=== PATIENT | male | born 1995 | race African-American/Black ===

== ENCOUNTER 2016-09-24 16:37 | Emergency (ER) | payer MEDICAID ==
[~2016-09-24] VITALS: Ht 182.9 cm; Wt 83.3 kg
[2016-09-24 16:39] VITALS: BP 138/68; PULSE 76; RESP 18; TEMP 98.7; O2SAT 98
--- NOTE | 2016-09-24 16:57 | PD ---
HPI Chief Complaint: Abdominal Pain Time Seen by Provider: 16:50 Travel History International Travel<30 days: No Contact w/Intl Traveler<30days: No Traveled to known affect area: No History of Present Illness HPI 20-year-old male here with complaint of abdominal pain. Patient has had 2 weeks of primarily a.m. upper abdominal pain. This is epigastric and radiates her of the abdomen. He describes it as achy. Mild. Associated nausea, vomiting and occasional loose stool. No hematemesis or hematochezia. Patient denies any history of peptic ulcer, gastritis, pancreatitis or hepatobiliary pathology. No previous abdominal surgery. [facility] Past Medical History Medical History: Denies Significant Hx Diminished Hearing: No Immunizations Current: No Tetanus Vaccination: Unknown Influenza Vaccination: Yes Past Surgical History Surgical History: No Previous Surgery Social History Alcohol Use: No Tobacco Use: No Substance Use: No Allergies-Medications (Allergen,Severity, Reaction): Coded Allergies: No Known Allergies (Unverified , 09/24/16) Reported Meds & Prescriptions Reported Meds & Active Scripts Active No Active Prescriptions or Reported Medications Review of Systems Except as stated in HPI: all other systems reviewed are Neg Physical Exam Narrative GENERAL: Well-appearing male in no acute distress SKIN: Focused skin assessment warm/dry. HEAD: Normocephalic. EYES: No scleral icterus. No injection or drainage. ENT: Mucous membranes pink and moist. NECK: Supple CARDIOVASCULAR: Regular rate and rhythm. RESPIRATORY: No accessory muscle use. GASTROINTESTINAL: Abdomen soft, minimal epigastric abdominal tenderness palpation without rebound or guarding MUSCULOSKELETAL: Normal gait NEUROLOGICAL: Awake and alert. Normal speech. PSYCHIATRIC: Appropriate mood and affect; insight and judgment normal. Data Data Last Documented VS Vital Signs Date Time Temp Pulse Resp B/P Pulse Ox O2 Delivery O2 Flow Rate FiO2 09/24/16 16:39 98.7 76 18 138/68 98 Room Air Orders Complete Blood Count With Diff (09/24/16 16:53) Comprehensive Metabolic Panel (09/24/16 16:53) Lipase (09/24/16 16:53) Iv Access Insert/Monitor (09/24/16 16:53) Oximetry (09/24/16 16:53) Sodium Chloride 0.9% Flush (Ns Flush) (09/24/16 17:00) Al-Mag Hy-Si 40-40-4 Mg/Ml Liq (Mag-Al P (09/24/16 17:00) Lidocaine 2% Viscous (Xylocaine 2% Visco (09/24/16 17:00) MDM Medical Decision Making Medical Screen Exam Complete: Yes Emergency Medical Condition: Yes Medical Record Reviewed: Yes Differential Diagnosis 20-year-old male here with episodic epigastric abdominal pain with nausea vomiting and occasional loose stools 2 weeks. Differential includes gastritis , pancreatitis, hepatobiliary pathology, peptic ulcer disease, gastroenteritis. Overall abdominal examination is benign making peritoneal pathology unlikely. Narrative Course Patient placed on monitor, IV established and blood obtained. Given GI cocktail. CBC, CMP, lipase were ordered and are pending at the time this dictation. Patient signed out to oncoming provider Dr. Magallanes awaiting results of same for hopeful disposition to home with antacid if unremarkable. Scripts No Active Prescriptions or Reported Meds Kellie Erickson MD Sep 24, 2016 16:57
[2016-09-24] MEDS ORDERED: SODIUM CHLORIDE 0.9% FLUSH 10 ML FLUSH IV FLUSH PRN (17:00)
[2016-09-24] MEDS ORDERED: ALUMINUM/MAGNESIUM/SIMETH 30 ML CUP PO ONE (17:00)
[2016-09-24] MEDS ORDERED: LIDOCAINE VISCOUS 2% SOLN 15 ML UDC PO ONE (17:00)
[2016-09-24 17:18] LABS: AUTOMATED NEUTROPHIL # 4.9 TH/MM3 (1.8-7.7); BASOPHIL # 0.1 TH/MM3 (0-0.2); BASOPHIL % 0.8 % (0.0-2.0); EOSINOPHIL # 0.1 TH/MM3 (0-0.4); EOSINOPHIL % 1.6 % (0.0-4.0); HEMATOCRIT 44.5 % (39.0-51.0); HEMO FLAGS DIFF FINAL; LYMPH % 21.4 % (9.0-44.0); LYMPHOCYTE # 1.5 TH/MM3 (1.0-4.8); MEAN CELL VOLUME 89.9 FL (80.0-100.0); MEAN CORPUSCULAR HEMOGLOBIN 29.4 PG (27.0-34.0); MEAN CORPUSCULAR HGB CONC 32.7 % (32.0-36.0); MONO % 6.9 % (0.0-8.0); NEUT % 69.3 % (16.0-70.0); PLATELET COUNT 263 TH/MM3 (150-450); RED BLOOD COUNT 4.95 MIL/MM3 (4.50-5.90); RED CELL DISTRIBUTION WIDTH 12.2 % (11.6-17.2); WHITE BLOOD COUNT 7.1 TH/MM3 (4.0-11.0)
[2016-09-24 17:32] LABS: ANION GAP 7 MEQ/L (5-15); AST (GOT) 11 U/L (15-39); BICARBONATE 30.9 MEQ/L (21.0-32.0); BLOOD UREA NITROGEN 10 MG/DL (7-18); CHLORIDE 102 MEQ/L (98-107); GLOMERULAR FILTRATION RATE 119 ML/MIN (>89); POTASSIUM 3.9 MEQ/L (3.5-5.1); SODIUM (NA) 140 MEQ/L (136-145)
[2016-09-24 17:36] LABS: ALKALINE PHOSPHATASE 74 U/L (45-117); ALT (GPT) 19 U/L (9-52); TOTAL BILIRUBIN ADULT 0.9 MG/DL (0.2-1.0)
[2016-09-24] MEDS ORDERED: RANI150T PO (17:49)
--- NOTE | 2016-09-24 17:49 | PD ---
Data Data Last Documented VS Vital Signs Date Time Temp Pulse Resp B/P Pulse Ox O2 Delivery O2 Flow Rate FiO2 09/24/16 16:39 98.7 76 18 138/68 98 Room Air Orders Complete Blood Count With Diff (09/24/16 16:53) Comprehensive Metabolic Panel (09/24/16 16:53) Lipase (09/24/16 16:53) Iv Access Insert/Monitor (09/24/16 16:53) Oximetry (09/24/16 16:53) Sodium Chloride 0.9% Flush (Ns Flush) (09/24/16 17:00) Al-Mag Hy-Si 40-40-4 Mg/Ml Liq (Mag-Al P (09/24/16 17:00) Lidocaine 2% Viscous (Xylocaine 2% Visco (09/24/16 17:00) Labs Laboratory Tests Test 09/24/16 17:00 White Blood Count 7.1 TH/MM3 Red Blood Count 4.95 MIL/MM3 Hemoglobin 14.5 GM/DL Hematocrit 44.5 % Mean Corpuscular Volume 89.9 FL Mean Corpuscular Hemoglobin 29.4 PG Mean Corpuscular Hemoglobin 32.7 % Concent Red Cell Distribution Width 12.2 % Platelet Count 263 TH/MM3 Mean Platelet Volume 9.5 FL Neutrophils (%) (Auto) 69.3 % Lymphocytes (%) (Auto) 21.4 % Monocytes (%) (Auto) 6.9 % Eosinophils (%) (Auto) 1.6 % Basophils (%) (Auto) 0.8 % Neutrophils # (Auto) 4.9 TH/MM3 Lymphocytes # (Auto) 1.5 TH/MM3 Monocytes # (Auto) 0.5 TH/MM3 Eosinophils # (Auto) 0.1 TH/MM3 Basophils # (Auto) 0.1 TH/MM3 CBC Comment DIFF FINAL Differential Comment Sodium Level 140 MEQ/L Potassium Level 3.9 MEQ/L Chloride Level 102 MEQ/L Carbon Dioxide Level 30.9 MEQ/L Anion Gap 7 MEQ/L Blood Urea Nitrogen 10 MG/DL Creatinine 0.98 MG/DL Estimat Glomerular Filtration 119 ML/MIN Rate Random Glucose 90 MG/DL Calcium Level 9.8 MG/DL Total Bilirubin 0.9 MG/DL Aspartate Amino Transf 11 U/L (AST/SGOT) Alanine Aminotransferase 19 U/L (ALT/SGPT) Alkaline Phosphatase 74 U/L Total Protein 8.7 GM/DL Albumin 4.4 GM/DL Lipase 152 U/L [facility] Supervised Visit with LUBA: Yes Narrative Course I took over care of this patient from Dr. Coulter. This is a 20-year-old male who presents with epigastric abdominal pain. He is very well-appearing on exam. Labs are reassuring. I suspect he has gastritis. He did ask me about the value of CT imaging. I discussed with him the risk of radiation given his age and I felt the better test for him if his symptoms don't improve would be an endoscopy. His labs are reassuring given his well appearance I doubt appendicitis or an alternate surgical etiology of his symptoms and I think CT imaging would be low yield. Patient is amenable to antacid and dietary modification in the setting of likely gastritis. Diagnosis Primary Impression: Gastritis Qualified Code: K29.00 - Acute gastritis without hemorrhage, unspecified gastritis type Patient Instructions: General Instructions Additional Instruction: If you develop severe or worsening abdominal pain, fever>100.4, persistent vomiting or inability to eat or drink return to the emergency department immediately. Follow up with your primary care physician in 1-2 days for a check-up. Med/Other Pt SpecificInfo: Prescription(s) given Scripts Ranitidine 150 Mg [id number] Mg PO BID #60 TAB Ref 0 Prov:Parris Magallanes MD 09/24/16 Disposition: 01 DISCHARGE HOME Condition: Stable Parris Magallanes MD Sep 24, 2016 17:49
== END 2016-09-24 18:26 | disposition home or self-care (01) ==
LOC: NEPD 16:37
DX: K29.70 Gastritis, unspecified, without bleeding (principal)
CPT/HCPCS: 80053; 83690; 85025; 99283